=== PATIENT | female | born 1990 | race Two or more races ===

== ENCOUNTER 2020-01-07 11:16 | Emergency (ER) | payer OTHER ==
[~2020-01-07] VITALS: Ht 165.1 cm; Wt 74.8 kg
[2020-01-07] MEDS ORDERED: KETO10TA2 PO (13:48)
== END 2020-01-07 14:51 | disposition home or self-care (01) ==
LOC: ER 11:16
DX: S93.492A Sprain of other ligament of left ankle, initial encounter (principal); X50.3XXA Overexertion from repetitive movements, initial encounter; Y93.01 Activity, walking, marching and hiking; Y92.89 Other specified places as the place of occurrence of the external cause; Y99.8 Other external cause status